=== PATIENT | female | born 1970 ===

== ENCOUNTER 2020-07-08 23:00 | Inpatient (IN) | payer OTHER ==
--- NOTE | 2020-07-08 23:16 | Emergency Department Report ---
HPI - General Time Seen by Provider: 07/08/20 23:09 - HPI HPI: Room 5 Patient is a 49-year-old female presenting with a chief complaint of altered mental status. Per EMS the patient's last known well time was this morning when the patient's neighbor checked on the patient. The patient's daughter asked the neighbor to check on the patient this evening at 22:00 and this is when she was found altered and in her own feces. Per EMS the only word the patient stated during transport was "ouch." In the ED when asked if anything is bothering her the patient states "my head." However, the patient does not follow commands ED Past Medical Hx - Past Medical History Hx Hypertension: Yes - Surgical History Past Surgical History?: No - Family History Family history: no significant - Social History Smoking Status: Unknown if ever smoked Substance Use Type: None ED Review of Systems ROS: Stated complaint: POSS STROKE Other details as noted in HPI Comment: Unobtainable due to pts medical conditions Physical Exam - Physical Exam Physical Exam: GENERAL: The patient is well-developed well-nourished female lying on stretcher not appearing to be in acute distress. [] HEENT: Normocephalic. Atraumatic. Extraocular motions are intact. Patient has moist mucous membranes. NECK: Supple. Trachea midline CHEST/LUNGS: Clear to auscultation. There is no respiratory distress noted. HEART/CARDIOVASCULAR: Regular. There is no tachycardia. There is no gallop rub or murmur. ABDOMEN: Abdomen is soft, nontender. Patient has normal bowel sounds. There is no abdominal distention. SKIN: There is no rash. There is no edema. There is no diaphoresis. NEURO: The patient is awake but slow to respond. Patient occasionally makes eye contact. Patient does not fully cooperate with neurologic exam but is witnessed moving all 4 extremities with prompting. Extraocular muscles intact. Symmetric smile. MUSCULOSKELETAL: There is no evidence of acute injury. ED Course - Consultations Consultation #1: 07/09/20 00:17 Case discussed with [id number] evaluate - Lumbar Puncture Consent Obtained: verbal consent Indication for Procedure: change in mental status Patient Position: Sitting Upright/Leaning F Skin Prep: Povidone-Iodine 1% Local Anesthetic Used: Lidocaine 1% Amount of anesthesia used (mls): 5 Spinal Needle Gauge: 20G Spinal Needle Length: 3.5in Interspace Used: L4-L5 Complications: unable to obtain CSF Patient Tolerated Procedure: no complications ED Medical Decision Making - Lab Data Result diagrams: 07/08/20 23:25 07/08/20 23:25 Laboratory Tests 07/08/20 07/08/20 07/08/20 23:25 23:25 23:25 WBC 17.9 H RBC 5.88 H Hgb 16.4 H Hct 49.8 H MCV 85 MCH 28 MCHC 33 RDW 14.1 Plt Count 535 H Lymph % (Auto) 10.8 L Tompkins % (Auto) 5.5 Eos % (Auto) 0.2 Baso % (Auto) 0.5 Lymph # (Auto) 1.9 Tompkins # (Auto) 1.0 H Eos # (Auto) 0.0 Baso # (Auto) 0.1 Seg Neutrophils % 83.0 H Seg Neutrophils # 14.9 H PT 11.7 L INR 0.88 APTT 25.4 Thrombin Time 15.5 Sodium 138 Potassium 4.2 Chloride 98.0 Carbon Dioxide 25 Anion Gap 19 BUN 17 Creatinine 0.9 Estimated GFR > 60 BUN/Creatinine Ratio 19 Glucose 119 H Calcium 9.0 Total Bilirubin 0.80 AST 15 ALT 18 Alkaline Phosphatase 157 H Ammonia Total Creatine Kinase 132 CK-MB (CK-2) 2.5 CK-MB (CK-2) Rel Index 1.8 Troponin T < 0.010 Total Protein 8.9 H Albumin 4.3 Albumin/Globulin Ratio 0.9 Plasma/Serum Alcohol 07/08/20 07/09/20 23:25 00:12 WBC RBC Hgb Hct MCV MCH MCHC RDW Plt Count Lymph % (Auto) Tompkins % (Auto) Eos % (Auto) Baso % (Auto) Lymph # (Auto) Tompkins # (Auto) Eos # (Auto) Baso # (Auto) Seg Neutrophils % Seg Neutrophils # PT INR APTT Thrombin Time Sodium Potassium Chloride Carbon Dioxide Anion Gap BUN Creatinine Estimated GFR BUN/Creatinine Ratio Glucose Calcium Total Bilirubin AST ALT Alkaline Phosphatase Ammonia 21.0 L Total Creatine Kinase CK-MB (CK-2) CK-MB (CK-2) Rel Index Troponin T Total Protein Albumin Albumin/Globulin Ratio Plasma/Serum Alcohol < 0.01 - EKG Data -: EKG Interpreted by Me EKG shows normal: sinus rhythm Rate: normal - EKG Data When compared to previous EKG there are: previous EKG unavailable Interpretation: normal EKG - Radiology Data Radiology results: report reviewed (CT head, CTA brain, CTA neck), image reviewed (CT head, CTA brain, CTA neck) [facility] [address] [place] [address] Cat Scan Report Signed Patient: KATHERINE ARECHIGA MR#: [id number] : 1970 Acct:[id number] Age/Sex: 49 / F ADM Date: 07/08/20 Loc: ED Attending Dr: Ordering Physician: GREGORY WARREN MD Date of Service: 07/08/20 Procedure(s): CT head/brain wo con Accession Number(s): [id number] cc: GREGORY WARREN MD CT HEAD WITHOUT CONTRAST INDICATION / CLINICAL INFORMATION: Altered mental status, headache. TECHNIQUE: All CT scans at this location are performed using CT dose reduction for ALARA by means of automated exposure control. COMPARISON: None available. FINDINGS: HEMORRHAGE: No evidence of intracranial hemorrhage or extra-axial fluid collection. EXTRA-AXIAL SPACES: Cortical sulci, sylvian fissures and basilar cisterns have an unremarkable appearance. VENTRICULAR SYSTEM: The third and lateral ventricles are of normal size and configuration. CEREBRAL PARENCHYMA: No areas of abnormal brain parenchymal attenuation are identified. There is no indication of recent infarction. MIDLINE SHIFT OR HERNIATION: There is no mass effect. CEREBELLUM / BRAINSTEM: Brainstem and cerebellum have an unremarkable appearance. MIDLINE STRUCTURES:No abnormalities of the pituitary gland or pineal region are identified. INTRACRANIAL VESSELS:No abnormalities are identified on this noncontrast head CT. ORBITS: visualized portions of the orbits have an unremarkable appearance. SOFT TISSUES of HEAD: No significant abnormality. CALVARIUM: Evaluation of bone windows reveals no abnormalities. PARANASAL SINUSES / MASTOID AIR CELLS: Visualized portions of the paranasal sinuses are free from inflammatory mucosal disease. Mastoid air cells are normally pneumatized. ADDITIONAL FINDINGS: None. IMPRESSION: 1. No significant intracranial abnormality is identified on head CT without contrast.. Signer Name: Nate Lilly MD Signed: 07/08/2020 11:25 PM Workstation Name: [id number] Transcribed By: Dictated By: Nate Lilly MD Electronically Authenticated By: Nate Lilly MD Signed Date/Time: 03/2324 DD/ 23 TD/TT: Print Cancel [facility] [address] [place] [address] Cat Scan Report Signed Patient: KATHERINE ARECHIGA MR#: [id number] : 1970 Acct:[id number] Age/Sex: 49 / F ADM Date: 07/08/20 Loc: ED Attending Dr: Ordering Physician: GREGORY WARREN MD Date of Service: 07/09/20 Procedure(s): CT angio head Accession Number(s): [id number] cc: GREGORY WARREN MD CTA head with intravenous contrast CLINICAL HISTORY: Altered mental status TECHNIQUE: 0.625 mm thick contiguous axial scans were obtained from the skull base to the skull vertex during rapid bolus administration of intravenous contrast material. Multiplanar reconstructions were produced in the coronal and sagittal planes. In addition 3 plane MIP instructions were produced and reviewed for this report. The axial source images and reconstructed images were reviewed for this report. CONTRAST DOSE REPORT: Omnipaque 350: 100 ml administered intravenously. According to the patient's angio technologist IV access was lost during the course of the examination and a portion of the intravenous contrast was infiltrated into the surrounding soft tissues at the IV site. All CT scans at this location are performed using CT dose reduction for ALARA by means of automated exposure control. Limitations: Fatty infiltration result in decreased contrast bolus and suboptimal opacification of the intracranial vessels. FINDINGS: Internal carotid arteries:Mayank, cavernous, opthalmic, clinoid and supraclinoid segments of the ICAs have an unremarkable appearance. Middle cerebral arteries:Normal and symmetrical M1 segments of the middle cerebral arteries are demonstrated. No ab normalities are seen on evaluation of the insular or opercular branches. Anterior cerebral arteries: The A1 segment of the right anterior cerebral artery is dominant. The left A1 segment is hypoplastic. No abnormalities are seen along the course of the A2 segments or their visualized pericallosal branches. Vertebral arteries:Bilaterally symmetrical vertebral arteries are demonstrated. Both vertebral arteries contribute to the basilar artery origin. Basilar artery:Basilar artery has an unremarkable appearance. Posterior cerebral arteries: Bilaterally symmetrical posterior cerebral arteries are identified. Dural sinuses: Dural venous sinuses are well demonstrated on this exam. There is no evidence of dural sinus thrombosis. IMPRESSION: 1. No significant abnormality on CTA head. 2. Study is somewhat limited secondary to IV infiltration during contrast injection which resulted in decreased volume of contrast occurred during the examination. Signer Name: Nate Lilly MD Signed: 07/09/2020 2:00 AM Workstation Name: [id number] Transcribed By: Dictated By: Nate Lilly MD Electronically Authenticated By: Nate Lilly MD Signed Date/Time: 07/09/20 020 DD/ 0156 TD/TT: Print Cancel [facility] [address] [place] [address] Cat Scan Report Signed Patient: KATHERINE ARECHIGA MR#: [id number] : 1970 Acct:[id number] Age/Sex: 49 / F ADM Date: 07/08/20 Loc: ED Attending Dr: Ordering Physician: GREGORY WARREN MD Date of Service: 07/09/20 Procedure(s): CT angio neck Accession Number(s): [id number] cc: GREGORY WARREN MD CTA neck without and with intravenous contrast material CLINICAL HISTORY: Altered mental status TECHNIQUE: Following acquisition of a timing bolus 0.625 mm thick contiguous a xial scans were obtained from aortic arch to the skull base during rapid bolus intravenous contrast infusion. In addition to evaluation of axial source images multiplanar reconstructions were produced and reviewed for this report. 3 plane MIP reconstructions were produced and reviewed. Contrast dose report: Omnipaque 350: 100 ml, administered intravenously All CT examinations performed at this facility utilize modulated dose reduction, iterative reconstruction or weight- based dosing, as appropriate, to obtain a radiation dose which is as low as can reasonably be achieved. FINDINGS: Thoracic aorta:No abnormalities are identified along the course of the thoracic aorta..The origins of the great vessels have an unremarkable appearance. Brachiocephalic artery, left common carotid artery origin and left subclavian artery all have an unremarkable appearance. Right carotid artery:No abnormalities are seen along the course of the RCCA, at the right carotid bifurcation or along the cervical portions of the LUIS MIGUEL. Left carotid artery: No abnormalities are noted along the course of the left common carotid artery, at the left carotid bifurcation or along the course of the cervical segments of the LICA. Posterior circulation:The vertebral arteries have an unremarkable appearance. Both vertebral arteries contribute to the basilar artery origin. The basilar artery has an unremarkable appearance. The degree of stenosis, if any, is determined utilizing NASCET like criteria. In this case there is no indication of hemodynamically significant stenosis at the carotid bifurcations or elsewhere. Evaluation of the nonvascular soft tissue structures reveal no abnormality. There is no indication of cervical lymphadenopathy. No abnormalities are seen along the course of the airway. Visualized portions of the parotid glands and the submandibular salivary glands have a normal appearance. Thyroid gland has a normal appearance. Evaluation of the lung apices reveals no evidence of lung nodule or infiltrate. Evaluation of the cervical spine is remarkable for widespread cervical spondylosis. Degenerative changes are superimposed on unfavorably narrowed central spinal canal. Severe central canal stenosis is present at the C5-6 and C6-7 levels. AP diameter of the spinal canal is reduced to about 5 mm at both levels. IMPRESSION: 1. No indication of hemodynamically significant stenosis at the carotid bifurcations or elsewhere. 2. Cervical spondylosis results in severe central canal stenosis at the C5-6 and C6-7 levels. Signer Name: Nate Lilly MD Signed: 07/09/2020 2:04 AM Workstation Name: [id number] Transcribed By: Dictated By: Nate Lilly MD Electronically Authenticated By: Nate Lilly MD Signed Date/Time: 07/09/20203 DD/ 9 TD/TT: Print - Differential Diagnosis Altered mental status, CVA, intoxication, Critical care attestation.: If time is entered above; I have spent that time in minutes in the direct care of this critically ill patient, excluding procedure time. ED Disposition Clinical Impression: Altered mental state, Leukocytosis Disposition: DC-09 OP ADMIT IP TO THIS HOSP Is pt being admited?: Yes Does the pt Need Aspirin: Yes Condition: Fair Time of Disposition: 03:34 (Hospitalist paged (Noah Ayala))
--- NOTE | 2020-07-08 23:30 | Cat Scan Report ---
CT HEAD WITHOUT CONTRAST INDICATION / CLINICAL INFORMATION: Altered mental status, headache. TECHNIQUE: All CT scans at this location are performed using CT dose reduction for ALARA by means of automated e xposure control. COMPARISON: None available. FINDINGS: HEMORRHAGE: No evidence of intracranial hemorrhage or extra-axial fluid collection. EXTRA-AXIAL SPACES: Cortical sulci, sylvian fissures and basilar cisterns have an unremarkable appear ance. VENTRICULAR SYSTEM: The third and lateral ventricles are of normal size and configuration. CEREBRAL PARENCHYMA: No areas of abnormal brain parenchymal attenuation are identified. There is no i ndication of recent infarction. MIDLINE SHIFT OR HERNIATION: There is no mass effect. CEREBELLUM / BRAINSTEM: Brainstem and cerebellum have an unremarkable appearance. MIDLINE STRUCTURES:No abnormalities of the pituitary gland or pineal region are identified. INTRACRANIAL VESSELS:No abnormalities are identified on this noncontrast head CT. ORBITS: visualized portions of the orbits have an unremarkable appearance. SOFT TISSUES of HEAD: No significant abnormality. CALVARIUM: Evaluation of bone windows reveals no abnormalities. PARANASAL SINUSES / MASTOID AIR CELLS: Visualized portions of the paranasal sinuses are free from inf lammatory mucosal disease. Mastoid air cells are normally pneumatized. ADDITIONAL FINDINGS: None. IMPRESSION: 1. No significant intracranial abnormality is identified on head CT without contrast.. Signer Name: Nate Lilly MD Signed: 07/08/2020 11:25 PM Workstation Name: [id number]
[2020-07-09 00:07] LABS: Basophils # (Auto) 0.1 K/mm3 (0.0-0.1); Basophils % (Auto) 0.5 % (0.0-1.8); Eosinophils % (Auto) 0.2 % (0.0-4.3); Hematocrit 49.8 % (30.3-42.9); Hemoglobin 16.4 gm/dl (10.1-14.3); Lymphocytes # (Auto) 1.9 K/mm3 (1.2-5.4); Lymphocytes % (Auto) 10.8 % (13.4-35.0); Mean Corpuscular HGB Conc 33 % (30-34); Mean Corpuscular Volume 85 fl (79-97); Monocytes % (Auto) 5.5 % (0.0-7.3); Platelet Count 535 K/mm3 (140-440); Red Blood Count 5.88 M/mm3 (3.65-5.03); Red Cell Distribution Width 14.1 % (13.2-15.2)
[2020-07-09 00:18] LABS: INR 0.88 (0.87-1.13)
[2020-07-09 00:19] LABS: Partial Thromboplastin Time 25.4 Sec. (24.2-36.6); Thrombin Time 15.5 Sec. (15.1-19.6)
[2020-07-09 00:25] LABS: Alanine Aminotransferase 18 units/L (7-56); Albumin 4.3 g/dL (3.9-5); BUN/Creatinine Ratio 19; Blood Urea Nitrogen 17 mg/dL (7-17); Creatine Kinase MB 2.5 ng/mL (0.0-4.0); Hemolysis Index 0
--- NOTE | 2020-07-09 00:33 | Consultation ---
History of Present Illness History of present illness: [facility] Consult Note # Demographics Consult Type: General Neurology Patient Location: Emergency Room First Name: Rosana Last Name: Christopher Date of : 1970 Age: 49 Gender: Female Time of Initial Page (): 07/09/2020, 00:13 Time of Return Call (): 07/09/2020, 00:13 # HPI History: 49F with HTN presents with altered mental status. LKWT Thursday. Daughter flew in from [place] today and patient was non-verbal, confused, incontinent of stool. Stated head hurts. Not following commands. Moving all four extremities. CT head done, which was unremarkable. Per daughter, had a similar episode 1 year ago, although that was not quite as bad. Has depression and anxiety. BP 167/43. # Scores Time of exam and NIHSS (): 07/09/2020, 00:17 Level of Consciousness 1a: [0] = Alert; keenly responsive LOC Questions 1b: [0] = Answers both questions correctly LOC Commands 1c: [0] = Performs both tasks correctly Best Gaze 2: [0] = Normal Visual 3: [0] = No visual loss Facial Palsy 4: [0] = Normal symmetrical movements Motor Arm Left 5a: [2] = Some effort against gravity Motor Arm Right 5b: [2] = Some effort against gravity Motor Leg Left 6a: [2] = Some effort against gravity Motor Leg Right 6b: [2] = Some effort against gravity Limb Ataxia 7: [0] = Absent Sensory 8: [0] = Normal Best Language 9: [2] = Severe aphasia Dysarthria 10: [1] = [id number] dysarthria Extinction and Inattention 11: [0] = No abnormality NIHSS Total: 11 # Data Other Labs: 17.9K WBCs Time Head CT personally read by me (): 07/09/2020, 00:[address]: no bleed, per radiologist read # Assessment Impression: Altered mental status with aphasia of unclear origin; rule out stroke, meningitis # Plan Thrombolytic/Intervention: NOT IV Thrombolytic or IA Intervention Thrombolytic Exclusion: > 4.5 hours Intraarterial Exclusion: other (see below), 4 days since LKWT Target Blood Pressure: SBP < 220, DBP < 105 Labs: hemoglobin A1c, lipid panel Imaging: (urgency: STAT in ED): MR Angiogram Head without contrast, MR Angiogram Neck with contrast, MRI Brain without contrast Diagnostic Test: echo with bubble study, lumbar puncture: cell count, protein, glucose Therapy/Evaluation: PT/OT evaluation, speech/swallow consultation Medication: ceftraixone 2g q12, vancomycin with goal level 15-20, acyclovir 10 mg/kg q8 with pre- and post-hydration DVT Prophylaxis: SCD Other: telemetry monitoring, I have discussed my recommendations with the referr ing provider # Logistics Telemedicine: Interactive 2 way audio and visual telecommunication technology was utilized during this visit Electronically signed at 07/09/2020 00:32 (Eastern Time) by David Valdes MD Medications and Allergies Allergies Allergy/AdvReac Type Severity Reaction Status Date / Time No Known Allergies Allergy Unverified 07/08/20 23:29 Physical Examination - Vital Signs Vital Signs: Vital Signs Temp Pulse Resp BP Pulse Ox 98.1 F 61 14 169/83 100 07/08/20 23:26 07/08/20 23:26 07/08/20 23:26 07/08/20 23:26 07/08/20 23:26 Results - Laboratory Findings CBC and BMP: 07/08/20 23:25 07/08/20 23:25 Abnormal Lab Findings: Abnormal Labs 07/08/20 07/08/20 07/08/20 23:25 23:25 23:25 WBC 17.9 H RBC 5.88 H Hgb 16.4 H Hct 49.8 H Plt Count 535 H Lymph % (Auto) 10.8 L Hanson # (Auto) 1.0 H Seg Neutrophils % 83.0 H Seg Neutrophils # 14.9 H PT 11.7 L Glucose 119 H Alkaline Phosphatase 157 H Ammonia Total Protein 8.9 H 07/08/20 23:25 WBC RBC Hgb Hct Plt Count Lymph % (Auto) Hanson # (Auto) Seg Neutrophils % Seg Neutrophils # PT Glucose Alkaline Phosphatase Ammonia 21.0 L Total Protein
[2020-07-09] MEDS ORDERED: ONDANSETRON 4 MG/2 ML INJ ONE (00:50)
[2020-07-09] MEDS ORDERED: ONDANSETRON 4 MG/2 ML INJ IV ONE (00:51)
[2020-07-09] MEDS ORDERED: ETOMIDATE 20 MG/10 ML INJ IV ONE (00:59)
--- NOTE | 2020-07-09 01:43 | History and Physical Report ---
History of Present Illness Date of examination: 07/09/20 Date of admission: 07/09/2020 Chief complaint: Altered mental status History of present illness: 49-year-old female with significant past medical history of hypertension brought into the emergency room today with complaint of altered mental status. Last well-known time was about 4 days ago. Patient's daughter had asked the neighbor to check on patient this evening at about 2200 when she was found altered and in her own feces. Patient unable to give any good history. Most of the history was gotten from the ER staff. Patient was also said to have complained about a headache upon arrival. Work-up in the emergency room today reveals a leukocytosis of about 18,000. CT scan of the head and CT angiogram were unremarkable. Lumbar puncture was attempted by the ER physician without success. Neurologist on-call was also consulted. Recommendation was to start patient on empiric antibiotics for possible meningitis. Past History Past Medical History: other (Depression, anxiety) Past Surgical History: No surgical history Social history: Lives alone Family history: no significant family history Medications and Allergies Allergies Allergy/AdvReac Type Severity Reaction Status Date / Time No Known Allergies Allergy Unverified 07/08/20 23:29 Review of Systems ROS unobtainable: due to mental status Exam - Constitutional Vitals: Temp Pulse Resp BP Pulse Ox 98.1 F 62 24 167/43 100 07/08/20 23:26 07/09/20 00:00 07/09/20 00:00 07/09/20 01:26 07/09/20 01:26 General appearance: Present: no acute distress, well-nourished, obese - EENT Eyes: Present: PERRL, EOM intact. Absent: scleral icterus ENT: clear oral mucosa, dentition normal - Neck Neck: Present: supple, normal ROM - Respiratory Respiratory effort: normal Respiratory: bilateral: CTA - Cardiovascular Rhythm: regular Heart Sounds: Present: S1 & S2. Absent: gallop, systolic murmur, diastolic murmur, rub, click - Extremities Extremities: no ischemia, pulses intact, pulses symmetrical, No edema, normal temperature, normal color, Full ROM Peripheral Pulses: within normal limits - Abdominal General gastrointestinal: Present: soft, non-tender, non-distended, normal bowel sounds. Absent: mass - Integumentary Integumentary: Present: clear, warm, dry. Absent: rash - Musculoskeletal Musculoskeletal: strength equal bilaterally - Psychiatric Psychiatric: cooperative - Neurologic Neurologic: CNII-XII intact, no focal deficits, moves all extremities HEART Score - HEART Score Troponin: Troponin T < 0.010 ng/mL (0.00-0.029) 07/08/20 23:25 Results - Labs CBC & Chem 7: 07/08/20 23:25 07/08/20 23:25 Labs: Abnormal lab results 07/08/20 07/08/20 07/08/20 Range/Units 23:25 23:25 23:25 WBC 17.9 H (4.5-11.0) K/mm3 RBC 5.88 H (3.65-5.03) M/mm3 Hgb 16.4 H (10.1-14.3) gm/dl Hct 49.8 H (30.3-42.9) % Plt Count 535 H (140-440) K/mm3 Lymph % (Auto) 10.8 L (13.4-35.0) % Bent # (Auto) 1.0 H (0.0-0.8) K/mm3 Seg Neutrophils % 83.0 H (40.0-70.0) % Seg Neutrophils # 14.9 H (1.8-7.7) K/mm3 PT 11.7 L (12.2-14.9) Sec. Glucose 119 H (65-100) mg/dL Alkaline Phosphatase 157 H (35-129) units/L Ammonia (25-60) umol/L Total Protein 8.9 H (6.3-8.2) g/dL 07/08/20 Range/Units 23:25 WBC (4.5-11.0) K/mm3 RBC (3.65-5.03) M/mm3 Hgb (10.1-14.3) gm/dl Hct (30.3-42.9) % Plt Count (140-440) K/mm3 Lymph % (Auto) (13.4-35.0) % Bent # (Auto) (0.0-0.8) K/mm3 Seg Neutrophils % (40.0-70.0) % Seg Neutrophils # (1.8-7.7) K/mm3 PT (12.2-14.9) Sec. Glucose (65-100) mg/dL Alkaline Phosphatase (35-129) units/L Ammonia 21.0 L (25-60) umol/L Total Protein (6.3-8.2) g/dL Assessment and Plan - Patient Problems (1) Altered mental state Current Visit: Yes Status: Acute Plan to address problem: Etiology is unclear. Will monitor mental status. Patient is being started on empiric IV antibiotics for possible meningitis. We will place consult to infectious disease for evaluation and recommendation. Lumbar puncture was attempted in the emergency room without success. We willconsult interventional radiology for evaluation. (2) Morbid obesity with BMI of 45.0-49.9, adult Current Visit: Yes Status: Acute Plan to address problem: We will place dietary consult. (3) Hypertension Current Visit: Yes Status: Acute Plan to address problem: We will place on routine home medications and monitor vital signs closely. (4) Leukocytosis Current Visit: Yes Status: Acute Plan to address problem: Possibly secondary to underlying infection. Patient placed on empiric IV antibiotics. We will monitor CBC. (5) DVT prophylaxis Current Visit: Yes Status: Acute Plan to address problem: Patient placed on sequential compression device. (6) Full code status Current Visit: Yes Status: Acute Plan to address problem: Patient is full code.
--- NOTE | 2020-07-09 02:04 | Cat Scan Report ---
CTA head with intravenous contrast CLINICAL HISTORY: Altered mental status TECHNIQUE: 0.625 mm thick contiguous axial scans were obtained from the skull base to the skull vertex during r apid bolus administration of intravenous contrast material. Multiplanar reconstructions were produced in the coronal and sagittal planes. In addition 3 plane MIP instructions were produced and reviewed for this report. The axial source images and reconstructed images were reviewed for this report. CONTRAST DOSE REPORT: Omnipaque 350: 100 ml administered intravenously. According to the patient's clinical lab technologist IV acces s was lost during the course of the examination and a portion of the intravenous contrast was infiltr ated into the surrounding soft tissues at the IV site. All CT scans at this location are performed using CT dose reduction for ALARA by means of automated e xposure control. Limitations: Fatty infiltration result in decreased contrast bolus and suboptimal opacification of th e intracranial vessels. FINDINGS: Internal carotid arteries:Mayank, cavernous, opthalmic, clinoid and supraclinoid segments of the ICAs have an unremarkable appearance. Middle cerebral arteries:Normal and symmetrical M1 segments of the middle cerebral arteries are demon strated. No abnormalities are seen on evaluation of the insular or opercular branches. Anterior cerebral arteries: The A1 segment of the right anterior cerebral artery is dominant. The lef t A1 segment is hypoplastic. No abnormalities are seen along the course of the A2 segments or their v isualized pericallosal branches. Vertebral arteries:Bilaterally symmetrical vertebral arteries are demonstrated. Both vertebral arteri es contribute to the basilar artery origin. Basilar artery:Basilar artery has an unremarkable appearance. Posterior cerebral arteries: Bilaterally symmetrical posterior cerebral arteries are identified. Dural sinuses: Dural venous sinuses are well demonstrated on this exam. There is no evidence of dural sinus thrombosis. IMPRESSION: 1. No significant abnormality on CTA head. 2. Study is somewhat limited secondary to IV infiltration during contrast injection which resulted in decreased volume of contrast occurred during the examination. Signer Name: Nate Lilly MD Signed: 07/09/2020 2:00 AM Workstation Name: [id number]
--- NOTE | 2020-07-09 02:08 | Cat Scan Report ---
CTA neck without and with intravenous contrast material CLINICAL HISTORY: Altered mental status TECHNIQUE: Following acquisition of a timing bolus 0.625 mm thick contiguous axial scans were obtained from aort ic arch to the skull base during rapid bolus intravenous contrast infusion. In addition to evaluation of axial source images multiplanar reconstructions were produced and reviewed for this report. 3 john ne MIP reconstructions were produced and reviewed. Contrast dose report: Omnipaque 350: 100 ml, administered intravenously All CT examinations performed at this facility utilize modulated dose reduction, iterative reconstruc tion or weight-based dosing, as appropriate, to obtain a radiation dose which is as low as can reason ably be achieved. FINDINGS: Thoracic aorta:No abnormalities are identified along the course of the thoracic aorta..The origins of the great vessels have an unremarkable appearance. Brachiocephalic artery, left common carotid arter y origin and left subclavian artery all have an unremarkable appearance. Right carotid artery:No abnormalities are seen along the course of the RCCA, at the right carotid bif urcation or along the cervical portions of the LUIS MIGUEL. Left carotid artery: No abnormalities are noted along the course of the left common carotid artery, a t the left carotid bifurcation or along the course of the cervical segments of the LICA. Posterior circulation:The vertebral arteries have an unremarkable appearance. Both vertebral arteries contribute to the basilar artery origin. The basilar artery has an unremarkable appearance. The degree of stenosis, if any, is determined utilizing NASCET like criteria. In this case there is no indication of hemodynamically significant stenosis at the carotid bifurcations or elsewhere. Evaluation of the nonvascular soft tissue structures reveal no abnormality. There is no indication of cervical lymphadenopathy. No abnormalities are seen along the course of the airway. Visualized porti ons of the parotid glands and the submandibular salivary glands have a normal appearance. Thyroid gla nd has a normal appearance. Evaluation of the lung apices reveals no evidence of lung nodule or infil trate. Evaluation of the cervical spine is remarkable for widespread cervical spondylosis. Degenerative barbour ges are superimposed on unfavorably narrowed central spinal canal. Severe central canal stenosis is p resent at the C5-6 and C6-7 levels. AP diameter of the spinal canal is reduced to about 5 mm at both levels. IMPRESSION: 1. No indication of hemodynamically significant stenosis at the carotid bifurcations or elsewhere. 2. Cervical spondylosis results in severe central canal stenosis at the C5-6 and C6-7 levels. Signer Name: Nate Lilly MD Signed: 07/09/2020 2:04 AM Workstation Name: [id number]
[2020-07-09] MEDS ORDERED: ASPIRIN 325 MG TAB PO ONE (03:34)
[2020-07-09] MEDS ORDERED: cefTRIAXone/NS 2 GM/100 ML 2 GM/100 ML BAG IV ONE (03:35)
[2020-07-09] MEDS ORDERED: VANCOMYCIN/NS 1 GM/250 ML 1 GM/250 ML BAG IV ONE (03:38)
[2020-07-09] MEDS ORDERED: ACETAMINOPHEN 325 MG TAB PO PRN (04:19)
[2020-07-09] MEDS ORDERED: MAGNESIUM HYDROXIDE (MOM) ORAL LIQD UDC PO PRN (04:19)
[2020-07-09] MEDS ORDERED: VANCOMYCIN PHARMACY TO DOSE IV SCH (05:00)
[2020-07-09] MEDS ORDERED: cefTRIAXone/NS 2 GM/100 ML 2 GM/100 ML BAG IV SCH (05:00)
[2020-07-09] MEDS: SODIUM CHLORIDE 0.9% 1000 ML 1,000 ML IV SCH ×2 (05:25→18:41)
[2020-07-09] MEDS ORDERED: VANCOMYCIN 2,000 MG in SODIUM CHLORIDE 0.9% 500 ML 500 ML IV SCH (06:00)
[2020-07-09] MEDS: hydrALAZINE 20 MG/1 ML INJ IV PRN (06:37)
[2020-07-09] MEDS: SODIUM CHLORIDE 0.9% IV SCH ×2 (06:39→13:35)
[2020-07-09] MEDS: ACYCLOVIR IV SCH ×2 (06:39→13:35)
[2020-07-09] MEDS: ENALAPRILAT 2.5 MG/2 ML INJ IV SCH ×3 (09:20→21:16)
--- NOTE | 2020-07-09 09:29 | Electrocardiograph Report ---
[facility] Test Date: 2020-07-08 Test Time: 23:44:11 Pat Name: KATHERINE ARECHIGA Department: Room: A469 1 Gender: F Superintendent Terminal: GIAN : 1970 Requested By: GREGORY WARREN Order Number: [id number] Reading MD: Rainer Hsu Measurements Intervals [place] Rate: 64 P: 6 MO: 156 QRS: 2 QRSD: 81 T: 17 QT: 425 QTc: 439 Interpretive Statements Sinus rhythm No previous ECG available for comparison Electronically Signed On 07-09-2020 6:29:37 PDT by Rainer Hsu
--- NOTE | 2020-07-09 10:46 | Procedure Note ---
Date of procedure: 07/09/20 Pre-op diagnosis: altered mental status Post-op diagnosis: same Procedure: lumbar functure under flouro Findings: mildly elevated pressures Anesthesia: local Surgeon: DONTA HOBBS Estimated blood loss: none Pathology: list (4 csf tubes) Specimen disposition: to lab Condition: stable Disposition: floor
--- NOTE | 2020-07-09 11:06 | Event Note ---
Date: 07/09/20 Patient seen and examined this morning she is more awake. She is unsure why she came to the hospital. She knows where she is. Upper extremities is intact no evidence of infiltration. No warmth or tenderness at the site suspected. She is for lumbar puncture this morning which was done successfully at the time of this note. Will follow results. She moves all limbs and extremities.
--- NOTE | 2020-07-09 11:18 | Fluoroscopy Report ---
LUMBAR PUNCTURE INDICATION : Altered mental status PROCEDURE: The risks (including but not limited to bleeding, infection, and spinal headache) and toby efits were explained to the patient and informed consent was obtained. A time out procedure was perf ormed. The procedure site was prepped and draped in the usual sterile fashion and lidocaine was used for local anesthesia. Under fluoroscopic guidance, a 22-gauge spinal needle was advanced into the L2-3 interlaminar space. The opening pressure was 180 mm H2O which was calculated by adding the length of the needle (9 cm) to the height of the CSF column. 4 separate collection tubes were used to obtain 1.5 cc of CSF each Eber ples were sent to the lab per the ordering physician specifications for further evaluation. The patient tolerated the procedure well with no complications. IMPRESSION: Successful lumbar puncture as outlined above. Opening pressure was 180 mm H20. Fluoroscopic time: 0.7 minutes Number of fluoroscopic images: 0 Signer Name: Scotty Lombardo Jr, MD Signed: 07/09/2020 11:14 AM Workstation Name: [id number]
[2020-07-09 12:54] LABS: White Blood Cell,CSF 0 /mm3 (1-10)
[2020-07-09 12:56] LABS: Appearance,CSF Hazy; Red Blood Cell,CSF 715 /mm3 (0-0)
[2020-07-09] MEDS ORDERED: ACYCLOVIR 1,000 MG in SODIUM CHLORIDE 0.9% 100 ML IV SCH (14:00)
[2020-07-09] MEDS: MORPHINE 2 MG/1 ML INJ IV PRN ×2 (14:04→18:40)
[2020-07-09] MEDS: ONDANSETRON 4 MG/2 ML INJ IV PRN (14:04)
--- NOTE | 2020-07-09 14:24 | Consultation ---
History of Present Illness - Reason for Consult Consult date: 07/09/20 Altered mental status, leukocytosis Requesting physician: ELLIS CANTU - History of Present Illness 49 years old female with history of morbid obesity, hypertension, admitted on secondary to 4-day history of altered mental status consistent with confusion. Patient was found by her neighbor altered on her own feces. Patient is not the best historian unable to provide a good history. She does report some headaches. On arrival, temperature 98.1, HR 61, 70 O2 sat 100, BP 169/83, initial WBC 17.9. Hemoglobin 16.4. Platelets 535. Creatinine 0.9. LFTs normal. CT of the head unremarkable. Review of Systems: positive in bold print limited mental status Past History Past Medical History: other (Depression, anxiety) Past Surgical History: No surgical history Social history: Lives alone Family history: no significant family history Medications and Allergies Allergies Allergy/AdvReac Type Severity Reaction Status Date / Time No Known Allergies Allergy Unverified 07/08/20 23:29 Home Medications Medication Instructions Recorded Confirmed Last Taken Type Hydroxyzine HCl [hydrOXYzine] 50 mg PO Q6HR PRN 07/09/20 07/09/20 Unknown History Ibuprofen [Motrin] 800 mg PO Q8HR PRN 07/09/20 07/09/20 Unknown History Meloxicam [Mobic] 15 mg PO DAILY 07/09/20 07/09/20 Unknown History Nabumetone 750 mg PO BID 07/09/20 07/09/20 Unknown History clonazePAM [clonazePAM Rapdis] 0.5 mg PO BID 07/09/20 07/09/20 Unknown History Active Meds: Active Medications Acetaminophen (Acetaminophen 325 Mg Tab) 650 mg PO Q4H PRN PRN Reason: Pain MILD(1-3)/Fever >100.5/PIKE Enalaprilat (Enalaprilat 2.5 Mg/2 Ml Inj) 1.25 mg IV Q6H LETTY Stop: 07/10/20 02:31 Last Admin: 07/09/20 13:53 Dose: 1.25 mg Documented by: Hydralazine HCl (Hydralazine 20 Mg/1 Ml Inj) 10 mg IV Q4H PRN PRN Reason: Hypertension Last Admin: 07/09/20 06:37 Dose: 10 mg Documented by: Sodium Chloride (Nacl 0.9% 1000 Ml) 1,000 mls @ 125 mls/hr IV DIRECT LETTY Last Admin: 07/09/20 05:25 Dose: 125 mls/hr Documented by: Ceftriaxone Sodium (Rocephin/Ns 2 Gm/100 Ml) 2 gm in 100 mls @ 200 mls/hr IV Q12H [facility]; Protocol Last Admin: 07/09/20 05:25 Dose: 200 mls/hr Documented by: Vancomycin HCl 2,000 mg/ (Sodium Chloride) 540 mls @ 250 mls/hr IV Q12H [facility] Last Admin: 07/09/20 09:21 Dose: Not Given Documented by: Acyclovir 1,000 mg/ Sodium (Chloride) 120 mls @ 100 mls/hr IV Q8HR [facility]; Protocol Magnesium Hydroxide (Magnesium Hydroxide (Mom) Oral Liqd Udc) 30 ml PO Q4H PRN PRN Reason: Constipation Morphine Sulfate (Morphine 2 Mg/1 Ml Inj) 2 mg IV Q4H PRN PRN Reason: Pain, Moderate (4-6) Last Admin: 07/09/20 14:04 Dose: 2 mg Documented by: Ondansetron HCl (Ondansetron 4 Mg/2 Ml Inj) 4 mg IV Q8H PRN PRN Reason: Nausea And Vomiting Last Admin: 07/09/20 14:04 Dose: 4 mg Documented by: Sodium Chloride (Sodium Chloride 0.9% 10 Ml Flush Syringe) 10 ml IV BID [facility] Last Admin: 07/09/20 09:30 Dose: Not Given Documented by: Sodium Chloride (Sodium Chloride 0.9% 10 Ml Flush Syringe) 10 ml IV PRN PRN PRN Reason: LINE FLUSH Physical Examination - Physical Exam Narrative exam: General appearance: Alert in NAD Eyes: anicteric sclerae, moist conjunctivae; no lid-lag; PERRLA HENT: Normocephalic, Atraumatic; normal external ears, nares open, oropharynx clear Neck: supple, tracheal midline, no JVD Lungs: Diminished breath sounds bilaterally CV: RRR no murmur Abdomen: Soft, tender suprapubic and bilateral lower quadrants + guarding Extremities: no edema, no cyanosis Skin: No rash. Psych: no agitated Neuro: Alert oriented confused - Constitutional Vitals: Vital Signs Temp Pulse Resp BP Pulse Ox 98.5 F 90 24 150/78 99 07/09/20 08:08 07/09/20 13:53 07/09/20 07:40 07/09/20 13:53 07/09/20 12:37 Temperature -Last 24 Hours Temperature 98.5 F Temperature 98.2 F Temperature 98.1 F Results - Labs CBC & Chem 7: 07/08/20 23:25 07/08/20 23:25 Labs: Abnormal lab results 07/08/20 07/08/20 07/08/20 Range/Units 23:19 23:25 23:25 WBC 17.9 H (4.5-11.0) K/mm3 RBC 5.88 H (3.65-5.03) M/mm3 Hgb 16.4 H (10.1-14.3) gm/dl Hct 49.8 H (30.3-42.9) % Plt Count 535 H (140-440) K/mm3 Lymph % (Auto) 10.8 L (13.4-35.0) % [place] # (Auto) 1.0 H (0.0-0.8) K/mm3 Seg Neutrophils % 83.0 H (40.0-70.0) % Seg Neutrophils # 14.9 H (1.8-7.7) K/mm3 PT 11.7 L (12.2-14.9) Sec. Glucose (65-100) mg/dL POC Glucose 125 H (70-105) mg/dL Alkaline Phosphatase (35-129) units/L Ammonia (25-60) umol/L Total Protein (6.3-8.2) g/dL 07/08/20 07/08/20 Range/Units 23:25 23:25 WBC (4.5-11.0) K/mm3 RBC (3.65-5.03) M/mm3 Hgb (10.1-14.3) gm/dl Hct (30.3-42.9) % Plt Count (140-440) K/mm3 Lymph % (Auto) (13.4-35.0) % [place] # (Auto) (0.0-0.8) K/mm3 Seg Neutrophils % (40.0-70.0) % Seg Neutrophils # (1.8-7.7) K/mm3 PT (12.2-14.9) Sec. Glucose 119 H (65-100) mg/dL POC Glucose (70-105) mg/dL Alkaline Phosphatase 157 H (35-129) units/L Ammonia 21.0 L (25-60) umol/L Total Protein 8.9 H (6.3-8.2) g/dL Assessment and Plan Cultures: None Assessment: 49 years old female with history of morbid obesity, hypertension, admitted on secondary to 4-day history of altered mental status consistent with confusion: #Acute leukocytosis: Of unclear etiology. CSF preliminary report not consistent with meningitis. ? Intra-abdominal source #Abdominal tenderness on exam: Patient noted with abdominal tenderness on exam. LFTs normal. #Morbid obesity #Acute encephalopathy: Unclear etiology. CT of the head unremarkable Recommendations: -Stop ceftriaxone, vancomycin and acyclovir -Start Zosyn IV -Check urinalysis, consider CT of abdomen/pelvis -CRP Will follow. Nery Swartz MD Infectious Diseases [facility] ([facility]) M [phone] O [phone]
[2020-07-09 14:46] LABS: Amphetamine Screen,Urine Negative; Benzodiazepines Screen,Urine Negative; Cocaine Screen,Urine Negative; Methadone Screen,Urine Negative; Opiate Screen,Urine Negative
[2020-07-09 14:55] LABS: Bilirubin,Urine NEG (Negative); Blood,Urine SM (Negative); Color,Urine Amber (Yellow); Mucus,Urine FEW /HPF; WBC,Urine < 1.0 /HPF (0.0-6.0)
[2020-07-09 14:59] LABS: Cannabinoid Screen,Urine PRESUMPTIVE POSITIVE
[2020-07-09 15:35] LABS: Total Cells Counted 100 /mm3
[2020-07-09 16:03] LABS: INR 0.92 (0.87-1.13)
[2020-07-09 16:04] LABS: Partial Thromboplastin Time 27.1 Sec. (24.2-36.6)
[2020-07-09 16:57] LABS: Basophils CSF 0 %
--- NOTE | 2020-07-09 17:37 | Event Note ---
Date: 07/09/20 IR does not perform LPs at this facility. Please coordinate with diagnostic radiology. Thank you.
[2020-07-09 20:24] LABS: Glucose,CSF 68 mg/dL
[2020-07-10] MEDS: ONDANSETRON 4 MG/2 ML INJ IV PRN ×2 (02:06→14:23)
[2020-07-10] MEDS: ENALAPRILAT 2.5 MG/2 ML INJ IV SCH (02:07)
[2020-07-10] MEDS: SODIUM CHLORIDE 0.9% 1000 ML 1,000 ML IV SCH (02:09)
[2020-07-10] MEDS ORDERED: PIPERACIL/TAZOBACTA 4.5/NS 100 4.5 GM/100 ML VIAL IV SCH (08:00)
--- NOTE | 2020-07-10 08:42 | Cat Scan Report ---
CT ABDOMEN AND PELVIS WITHOUT CONTRAST INDICATION / CLINICAL INFORMATION: abdominal pain. TECHNIQUE: Axial CT images were obtained through the abdomen and pelvis without IV contrast. All CT scans at this location are performed using CT dose reduction for ALARA by means of automated exposure control. COMPARISON: None available. FINDINGS: LOWER CHEST: No significant abnormality LIVER: Mild hepatomegaly and hepatic steatosis. GALLBLADDER/BILIARY TREE: No significant abnormality PANCREAS: No significant abnormality SPLEEN: No significant abnormality ADRENALS: No significant abnormality KIDNEYS / URETER: No significant abnormality URINARY BLADDER: No significant abnormality REPRODUCTIVE ORGANS: IUD is seen in the uterus. No suspicious adnexal mass. STOMACH / SMALL BOWEL: Stomach and small bowel are normal in caliber. No evidence of bowel inflammati on. COLON: The colon is unremarkable. The appendix is not definitely seen. LYMPH NODES: No significant adenopathy. VASCULATURE: No significant abnormality. OTHER: No free air, free fluid, or focal fluid collection is identified. SKELETAL SYSTEM: Degenerative changes of the spine. No acute osseous findings. IMPRESSION: No acute abnormality of the abdomen or pelvis. Signer Name: Pipe Kendall MD Signed: 07/10/2020 8:37 AM Workstation Name: [id number]
--- NOTE | 2020-07-10 08:50 | XRay Report ---
CHEST 2 VIEWS INDICATION / CLINICAL INFORMATION: eval for pneumonia. COMPARISON: CT abdomen pelvis 07/09/2020 FINDINGS: SUPPORT DEVICES: None. HEART / MEDIASTINUM: No significant abnormality. LUNGS / PLEURA: Hazy opacification at the periphery is likely secondary to overlying soft tissue. No convincing evidence of acute pulmonary or pleural abnormality. No pneumothorax. ADDITIONAL FINDINGS: No significant additional findings. IMPRESSION: 1. No convincing evidence of acute pulmonary parenchymal or pleural disease. Signer Name: Jairon Lay MD Signed: 07/10/2020 8:45 AM Workstation Name: [id number]
--- NOTE | 2020-07-10 10:01 | Progress Note ---
Assessment and Plan Cultures: CSF culture pending Assessment: 49 years old female with history of morbid obesity, hypertension, a dmitted on secondary to 4-day history of altered mental status consistent with confusion: #Acute leukocytosis: Of unclear etiology. Procalcitonin is low. CSF preliminary report not consistent with meningitis. Chest x-ray unremarkable. Abdominal CT unremarkable. Urinalysis negative. CRP 7 #Abdominal tenderness on exam: Abdominal CT unremarkable. LFTs normal. #Morbid obesity #Acute encephalopathy: Resolved. Unclear etiology. CT of the head unremarkable Recommendations: -Follow-up blood cultures -Stop Zosyn, procalcitonin is low, chest x-ray is negative, abdominal CT negative, urinalysis negative -Monitor off antibiotics Will follow. Nery Swartz MD Infectious Diseases [facility] ([facility]) M [phone] O [phone] Subjective Date of service: 07/10/20 Principal diagnosis: SIRS Interval history: Patient feels better, no fever, no abdominal pain, headache is better. Objective - Exam Narrative Exam: General appearance: Alert in NAD Eyes: anicteric sclerae, moist conjunctivae; no lid-lag; PERRLA HENT: Normocephalic, Atraumatic; normal external ears, nares open, oropharynx clear Neck: supple, tracheal midline, no JVD Lungs: Diminished breath sounds bilaterally CV: RRR no murmur Abdomen: Soft, tender suprapubic and bilateral lower quadrants + guarding Extremities: no edema, no cyanosis Skin: No rash. Psych: no agitated Neuro: Alert oriented confused - Constitutional Vitals: Vital Signs Temp Pulse Resp BP Pulse Ox 98.8 F 84 98 H 166/90 95 07/10/20 07:21 07/10/20 07:34 07/10/20 07:21 07/10/20 07:21 07/10/20 07:34 Temperature -Last 24 Hours Temperature 98.8 F Temperature 97.9 F Temperature 98.3 F Temperature 98.4 F Temperature 98.3 F Temperature 99.1 F - Labs CBC & Chem 7: 07/09/20 15:22 07/08/20 23:25 Labs: Abnormal lab results 07/08/20 07/09/20 07/09/20 Range/Units 14:04 15:22 15:22 Plt Count 532 H (140-440) K/mm3 C-Reactive Protein 7.50 H (0.00-1.30) mg/dL Ur Specific [place] 1.060 H (1.003-1.030)
[2020-07-10] MEDS: MORPHINE 2 MG/1 ML INJ IV PRN (10:38)
--- NOTE | 2020-07-10 12:07 | Progress Note ---
Assessment and Plan Assessment and plan: 49-year-old female with significant past medical history of hypertension brought into the emergency room today with complaint of altered mental status. Last well-known time was about 4 days ago. Patient's daughter had asked the neighbor to check on patient this evening at about 2200 when she was found altered and in her own feces. Patient unable to give any good history. Most of the history was gotten from the ER staff. Patient was also said to have complained about a headache upon arrival. Work-up in the emergency room today reveals a leukocytosis of about 18,000. CT scan of the head and CT angiogram were unremarkable. Lumbar puncture was attempted by the ER physician without success. Neurologist on-call was also consulted. Recommendation was to start patient on empiric antibiotics for possible meningitis. 07/10. Patient had an LP performed that showed no meningitis. ID on board. Patient had a chest x-ray and CT abdomen and pelvis performed yesterday and those findings are essentially negative for any acute process. Her white count yesterday was elevated. Plan to repeat white count today. Blood culture also ordered today. Patient remains on Zosyn. She is alert and oriented x3 today. Denies any abdominal pain, nausea or vomiting. Problems #Acute metabolic encephalopathy -resolved CT head negative for any acute pathology Patient started on IV antibiotic for possible meningitis. Patient had an LP performed that showed negative meningeal disease/infection. Chest x-ray also ordered-no acute infection CT abdomen and pelvis also negative Plan now will be to repeat CBC and blood culture. Continue IV antibiotics #Hypertension Monitor blood pressure #Morbid obesity Weight loss, diet and exercise advised #DVT prophylaxis-SCDs #Full code #Disposition-Home when stable. Likely home tomorrow pending CBC and blood culture History Interval history: Patient seen and examined at bedside this morning She is alert oriented x3 Chest x-ray negative for pneumonia. CT abdomen and pelvis negative for any acute abdominal infection/process Remains on IV antibiotics Patient has no complaints today Hospitalist Physical - Physical exam Narrative exam: VITAL SIGNS: Reviewed. GENERAL: Awake HEAD: No signs of head trauma. EYES: Pupils are equal. Extraocular motions intact. MOUTH: Oropharynx is normal. NECK: No adenopathy, no JVD. CHEST: Chest with diminished breath sounds bilaterally. No wheezes, rales, or rhonchi. CARDIAC: normal S1 and S2, without murmurs, gallops, or rubs. ABDOMEN: Soft, non tender and non distended. No rebound or guarding, and no masses palpated. Bowel Sounds normal. MUSCULOSKELETAL: No edema NEUROLOGIC EXAM: Alert and oriented x3. No focal neurologic deficits SKIN: No obvious lesions - Constitutional Vitals: Temp Pulse Resp BP Pulse Ox 98.8 F 84 98 H 166/90 95 07/10/20 07:21 07/10/20 07:34 07/10/20 07:21 07/10/20 07:21 07/10/20 07:34 HEART Score - HEART Score Troponin: Troponin T < 0.010 ng/mL (0.00-0.029) 07/08/20 23:25 Results - Labs CBC & Chem 7: 07/09/20 15:22 07/08/20 23:25 Labs: Laboratory Last Values WBC 17.9 K/mm3 (4.5-11.0) H 07/08/20 23:25 RBC 5.88 M/mm3 (3.65-5.03) H 07/08/20 23:25 Hgb 16.4 gm/dl (10.1-14.3) H 07/08/20 23:25 Hct 49.8 % (30.3-42.9) H 07/08/20 23:25 MCV 85 fl (79-97) 07/08/20 23:25 MCH 28 pg (28-32) 07/08/20 23:25 MCHC 33 % (30-34) 07/08/20 23:25 RDW 14.1 % (13.2-15.2) 07/08/20 23:25 Plt Count 532 K/mm3 (140-440) H 07/09/20 15:22 Lymph % (Auto) 10.8 % (13.4-35.0) L 07/08/20 23:25 [place] % (Auto) 5.5 % (0.0-7.3) 07/08/20 23:25 Eos % (Auto) 0.2 % (0.0-4.3) 07/08/20 23:25 Baso % (Auto) 0.5 % (0.0-1.8) 07/08/20 23:25 Lymph # (Auto) 1.9 K/mm3 (1.2-5.4) 07/08/20 23:25 [place] # (Auto) 1.0 K/mm3 (0.0-0.8) H 07/08/20 23:25 Eos # (Auto) 0.0 K/mm3 (0.0-0.4) 07/08/20 23:25 Baso # (Auto) 0.1 K/mm3 (0.0-0.1) 07/08/20 23:25 Seg Neutrophils % 83.0 % (40.0-70.0) H 07/08/20 23:25 Seg Neutrophils # 14.9 K/mm3 (1.8-7.7) H 07/08/20 23:25 PT 12.2 Sec. (12.2-14.9) 07/09/20 15:22 INR 0.92 (0.87-1.13) 07/09/20 15:22 APTT 27.1 Sec. (24.2-36.6) 07/09/20 15:22 Thrombin Time 15.5 Sec. (15.1-19.6) 07/08/20 23:25 Sodium 138 mmol/L (137-145) 07/08/20 23:25 Potassium 4.2 mmol/L (3.6-5.0) 07/08/20 23:25 Chloride 98.0 mmol/L (98-107) 07/08/20 23:25 Carbon Dioxide 25 mmol/L (22-30) 07/08/20 23:25 Anion Gap 19 mmol/L 07/08/20 23:25 BUN 17 mg/dL (7-17) 07/08/20 23:25 Creatinine 0.9 mg/dL (0.6-1.2) 07/08/20 23:25 Estimated GFR > 60 ml/min 07/08/20 23:25 BUN/Creatinine Ratio 19 % 07/08/20 23:25 Glucose 119 mg/dL (65-100) H 07/08/20 23:25 POC Glucose 97 mg/dL (70-105) 07/10/20 02:01 Calcium 9.0 mg/dL (8.4-10.2) 07/08/20 23:25 Total Bilirubin 0.80 mg/dL (0.1-1.2) 07/08/20 23:25 AST 15 units/L (5-40) 07/08/20 23:25 ALT 18 units/L (7-56) 07/08/20 23:25 Alkaline Phosphatase 157 units/L (35-129) H 07/08/20 23:25 Ammonia 21.0 umol/L (25-60) L 07/08/20 23:25 Total Creatine Kinase 132 units/L (30-135) 07/08/20 23:25 CK-MB (CK-2) 2.5 ng/mL (0.0-4.0) 07/08/20 23:25 CK-MB (CK-2) Rel Index 1.8 (0-4) 07/08/20 23:25 Troponin T < 0.010 ng/mL (0.00-0.029) 07/08/20 23:25 C-Reactive Protein 7.50 mg/dL (0.00-1.30) H 07/09/20 15:22 Total Protein 8.9 g/dL (6.3-8.2) H 07/08/20 23:25 Albumin 4.3 g/dL (3.9-5) 07/08/20 23:25 Albumin/Globulin Ratio 0.9 % 07/08/20 23: Procalcitonin 0.10 ng/mL (<0.15) 07/09/20 15:22 Urine Color Aline (Yellow) 07/08/20 14:04 Urine Turbidity Clear (Clear) 07/08/20 14:04 Urine pH 5.0 (5.0-7.0) 07/08/20 14:04 Ur Specific [place] 1.060 (1.003-1.030) H 07/08/20 14:04 Urine Protein 100 mg/dl mg/dL (Negative) 07/08/20 14:04 Urine Glucose (UA) Neg mg/dL (Negative) 07/08/20 14:04 Urine Ketones Neg mg/dL (Negative) 07/08/20 14:04 Urine Blood Sm (Negative) 07/08/20 14:04 Urine Nitrite Neg (Negative) 07/08/20 14:04 Urine Bilirubin Neg (Negative) 07/08/20 14:04 Urine Urobilinogen 4.0 mg/dL (<2.0) 07/08/20 14:04 Ur Leukocyte Esterase Neg (Negative) 07/08/20 14:04 Urine WBC (Auto) < 1.0 /HPF (0.0-6.0) 07/08/20 14:04 Urine RBC (Auto) 1.0 /HPF (0.0-6.0) 07/08/20 14:04 U Epithel Cells (Auto) 1.0 /HPF (0-13.0) 07/08/20 14:04 Urine Mucus Few /HPF 07/08/20 14:04 CSF Appearance Hazy 07/09/20 11:10 CSF Color [place] 07/09/20 11:10 CSF WBC 0 /mm3 (1-10) 07/09/20 11:10 CSF RBC 715 /mm3 (0-0) 07/09/20 11:10 CSF Seg Neutrophils 85.0 % (0-6) 07/09/20 11:10 CSF Lymphocytes % 14.0 % (40-80) 07/09/20 11:10 CSF Reactive Lymphs 0 % 07/09/20 11:10 CSF Monocytes % 1.0 % (15-45) 07/09/20 11:10 CSF Eosinophils % 0 % 07/09/20 11:10 CSF Basophils 0 % 07/09/20 11:10 CSF Pathologist Review C 07/09/20 11:10 CSF Glucose 68 mg/dL 07/09/20 11:10 CSF Total Protein 33 mg/dL 07/09/20 11:10 Urine Opiates Screen Negative 07/08/20 14:04 Urine Methadone Screen Negative 07/08/20 14:04 Ur Barbiturates Screen Negative 07/08/20 14:04 Ur Phencyclidine Scrn Negative 07/08/20 14:04 Ur Amphetamines Screen Negative 07/08/20 14:04 U Benzodiazepines Scrn Negative 07/08/20 14:04 Urine Cocaine Screen Negative 07/08/20 14:04 U Marijuana (THC) Screen Presumptive positive 07/08/20 14:04 Drugs of Abuse Note Disclamer 07/08/20 14:04 Plasma/Serum Alcohol < 0.01 % (0-0.07) 07/09/20 00:12 Microbiology: Microbiology 07/09/20 11:10 Cerebral Spinal Fluid CSF Culture - Preliminary Garcia/IV: Voiding Method External Female Catheter Active Medications - Current Medications Current Medications: Generic Name Dose Route Start Last Admin Trade Name Freq PRN Reason Stop Dose Admin Acetaminophen 650 mg 07/09/20 04:19 Acetaminophen 325 Mg Tab PO Q4H PRN Pain MILD(1-3)/Fever >100.5/PIKE Hydralazine HCl 10 mg 07/09/20 06:30 07/09/20 06:37 Hydralazine 20 Mg/1 Ml Inj IV 10 mg Q4H PRN Administration Hypertension Sodium Chloride 1,000 mls @ 125 mls/hr 07/09/20 04:30 07/10/20 02:09 Nacl 0.9% 1000 Ml IV 125 mls/hr DIRECT LETTY Administration Magnesium Hydroxide 30 ml 07/09/20 04:19 Magnesium Hydroxide (Mom) Oral Liqd Udc PO Q4H PRN Constipation Morphine Sulfate 2 mg 07/09/20 04:19 07/10/20 10:38 Morphine 2 Mg/1 Ml Inj IV 2 mg Q4H PRN Administration Pain, Moderate (4-6) Ondansetron HCl 4 mg 07/09/20 04:19 07/10/20 02:06 Ondansetron 4 Mg/2 Ml Inj IV 4 mg Q8H PRN Administration Nausea And Vomiting Sodium Chloride 10 ml 07/09/20 10:00 07/10/20 10:38 Sodium Chloride 0.9% 10 Ml Flush Syringe IV 10 ml BID LETTY Administration Sodium Chloride 10 ml 07/09/20 04:19 Sodium Chloride 0.9% 10 Ml Flush Syringe IV PRN PRN LINE FLUSH
[2020-07-10] MEDS: hydrALAZINE 20 MG/1 ML INJ IV PRN ×2 (12:50→18:13)
[2020-07-10 14:03] LABS: Basophils # (Auto) 0.1 K/mm3 (0.0-0.1); Basophils % (Auto) 0.7 % (0.0-1.8); Eosinophils # (Auto) 0.1 K/mm3 (0.0-0.4); Eosinophils % (Auto) 0.7 % (0.0-4.3); Hematocrit 45.1 % (30.3-42.9); Hemoglobin 14.7 gm/dl (10.1-14.3); Lymphocytes % (Auto) 12.9 % (13.4-35.0); Mean Corpuscular HGB Conc 33 % (30-34); Mean Corpuscular Volume 85 fl (79-97); Monocytes # (Auto) 1.2 K/mm3 (0.0-0.8); Monocytes % (Auto) 7.9 % (0.0-7.3); Platelet Count 492 K/mm3 (140-440); Red Cell Distribution Width 13.8 % (13.2-15.2)
[2020-07-10 14:24] LABS: Albumin 3.6 g/dL (3.9-5); Calcium 8.6 mg/dL (8.4-10.2)
[2020-07-10] MEDS ORDERED: POTASSIUM CHLORIDE ER 20 MEQ TAB PO NR (19:21)
[2020-07-10] MEDS ORDERED: ZOLPIDEM 5 MG TAB PO SCH (22:00)
[2020-07-10] MEDS ORDERED: QUEtiapine 100 MG TAB PO SCH (22:00)
[2020-07-10] MEDS ORDERED: QUEtiapine 200 MG TAB PO SCH (22:00)
[2020-07-11] MEDS ORDERED: VENLAFAXINE XR 75 MG CAP PO SCH (10:00)
[2020-07-11] MEDS ORDERED: ACYCLOVIR 200 MG CAP PO SCH (10:00)
--- NOTE | 2020-07-11 11:45 | Progress Note ---
Subjective Date of service: 07/11/20 Principal diagnosis: SIRS Interval history: Patient feels better, no fever, no abdominal pain, headache is better. Objective - Constitutional Vitals: Vital Signs Temp Pulse Resp BP Pulse Ox 97.7 F 111 H 18 156/77 96 07/11/20 08:10 07/11/20 10:00 07/11/20 08:10 07/11/20 08:10 07/11/20 08:10 Temperature -Last 24 Hours Temperature 97.7 F Temperature 98.5 F Temperature 99.4 F Temperature 99.6 F Temperature 98.6 F - Labs CBC & Chem 7: 07/10/20 13:47 07/10/20 13:47 Labs: Abnormal lab results 07/10/20 07/10/20 Range/Units 13:47 13:47 WBC 15.6 H (4.5-11.0) K/mm3 RBC 5.30 H (3.65-5.03) M/mm3 Hgb 14.7 H (10.1-14.3) gm/dl Hct 45.1 H (30.3-42.9) % Plt Count 492 H (140-440) K/mm3 Lymph % (Auto) 12.9 L (13.4-35.0) % [place] % (Auto) 7.9 H (0.0-7.3) % [place] # (Auto) 1.2 H (0.0-0.8) K/mm3 Seg Neutrophils % 77.8 H (40.0-70.0) % Seg Neutrophils # 12.1 H (1.8-7.7) K/mm3 Sodium 131 L D (137-145) mmol/L Potassium 3.5 L (3.6-5.0) mmol/L Chloride 95.1 L (98-107) mmol/L Glucose 109 H (65-100) mg/dL AST 44 H (5-40) units/L Alkaline Phosphatase 139 H (35-129) units/L Albumin 3.6 L (3.9-5) g/dL
--- NOTE | 2020-07-11 11:48 | Progress Note ---
Assessment and Plan Cultures: CSF culture pending Assessment: 49 years old female with history of morbid obesity, hypertension, a dmitted on secondary to 4-day history of altered mental status consistent with confusion: #Acute leukocytosis: Likely reactive due to oversedation vs ? Aspiration pneumonitis. Procalcitonin is low. CSF preliminary report not consistent with meningitis. Chest x-ray unremarkable. Abdominal CT unremarkable. Urinalysis negative. CRP 7 #Abdominal tenderness on exam: Resolved. Abdominal CT unremarkable. LFTs normal. #Morbid obesity #Acute encephalopathy: Likely secondary to unintentional overdose due to combination of DIME bag sugar high (THC) and Seroquel. Resolved. CT of the head unremarkable Recommendations: -Patient educated about avoiding combination of sedative -Okay to discharge home on a 875 g p.o. twice daily for 5 days for ? Aspiration pneumonitis discussed w attending Will follow. Nery Swartz MD Infectious Diseases Job Training Specialist [facility] ([facility]) M [phone] O [phone] Subjective Date of service: 07/11/20 Principal diagnosis: SIRS Interval history: Patient feels much better, she wants to go home. No complaints. Objective - Exam Narrative Exam: General appearance: Alert in NAD Eyes: anicteric sclerae, moist conjunctivae; no lid-lag; PERRLA HENT: Normocephalic, Atraumatic; normal external ears, nares open, oropharynx clear Neck: supple, tracheal midline, no JVD Lungs: Clear to auscultation bilaterally CV: RRR no murmur Abdomen: Soft, nontender nondistended Extremities: no edema, no cyanosis Skin: No rash. Psych: no agitated Neuro: Alert, oriented x3, moving all extremities - Constitutional Vitals: Vital Signs Temp Pulse Resp BP Pulse Ox 97.7 F 111 H 18 156/77 96 07/11/20 08:10 07/11/20 10:00 07/11/20 08:10 07/11/20 08:10 07/11/20 08:10 Temperature -Last 24 Hours Temperature 97.7 F Temperature 98.5 F Temperature 99.4 F Temperature 99.6 F Temperature 98.6 F - Labs CBC & Chem 7: 07/10/20 13:47 07/10/20 13:47 Labs: Abnormal lab results 07/10/20 07/10/20 Range/Units 13:47 13:47 WBC 15.6 H (4.5-11.0) K/mm3 RBC 5.30 H (3.65-5.03) M/mm3 Hgb 14.7 H (10.1-14.3) gm/dl Hct 45.1 H (30.3-42.9) % Plt Count 492 H (140-440) K/mm3 Lymph % (Auto) 12.9 L (13.4-35.0) % [place] % (Auto) 7.9 H (0.0-7.3) % [place] # (Auto) 1.2 H (0.0-0.8) K/mm3 Seg Neutrophils % 77.8 H (40.0-70.0) % Seg Neutrophils # 12.1 H (1.8-7.7) K/mm3 Sodium 131 L D (137-145) mmol/L Potassium 3.5 L (3.6-5.0) mmol/L Chloride 95.1 L (98-107) mmol/L Glucose 109 H (65-100) mg/dL AST 44 H (5-40) units/L Alkaline Phosphatase 139 H (35-129) units/L Albumin 3.6 L (3.9-5) g/dL
--- NOTE | 2020-07-11 12:07 | Discharge Summary ---
Providers - Providers Date of Admission: 07/09/20 03:40 Date of discharge: 07/11/20 Attending physician: BILLY VENEGAS 07/09/20 04:19 Consult to Physician [CONS] Routine Comment: Consulting Provider: JENNIFER ZHAO Physician Instructions: Reason For Exam: Altered mental status, leukocytosis.R/O meningitis 07/09/20 09:53 Occupational Therapy Evaluate and Treat [CONS] Routine Comment: Reason For Exam: debility Physical Therapy Evaluation and Treat [CONS] Routine Comment: Reason For Exam: debility Primary care physician: [employer] Hospitalization Condition: Fair Disposition: DC-01 TO HOME OR SELFCARE Final Discharge Diagnosis (Prints w/discharge instructions): Acute metabolic enc ephalopathy. Aspiration pneumonia Time spent for discharge: 35 minutes - Discharge Diagnoses (1) Hypertension Status: Acute (2) Leukocytosis Status: Acute Comment: Due to aspiration pneumonia (3) Morbid obesity with BMI of 45.0-49.9, adult Status: Acute Core Measure Documentation - Palliative Care Palliative Care/ Comfort Measures: Not Applicable - Core Measures Any of the following diagnoses?: none Exam - Physical Exam Narrative exam: VITAL SIGNS: Reviewed. GENERAL: Awake HEAD: No signs of head trauma. EYES: Pupils are equal. Extraocular motions intact. MOUTH: Oropharynx is normal. NECK: No adenopathy, no JVD. CHEST: Chest with diminished breath sounds bilaterally. No wheezes, rales, or rhonchi. CARDIAC: normal S1 and S2, without murmurs, gallops, or rubs. ABDOMEN: Soft, non tender and non distended. No rebound or guarding, and no masses palpated. Bowel Sounds normal. MUSCULOSKELETAL: No edema NEUROLOGIC EXAM: Alert and oriented x3. No focal neurologic deficits SKIN: No obvious lesions - Constitutional Vitals: Temp Pulse Resp BP Pulse Ox 97.7 F 111 H 18 156/77 96 07/11/20 08:10 07/11/20 10:00 07/11/20 08:10 07/11/20 08:10 07/11/20 08:10 Plan Diet: low fat, low cholesterol, low salt Additional Instructions: Continue Augmentin for 5 more days. Stop use of marijuana products. Follow-up with PCP in a week Follow up with: PRIMARY CARE, [Primary Care Provider] - 7 Days Prescriptions: Amoxicillin/K Clav Tab [Augmentin 875MG TAB] 1 tab PO Q12HR #10 tab Metoprolol [Lopressor TAB] 25 mg PO BID #60 tablet
[2020-07-11 13:10] VITALS: BP 121/66
[2020-07-11] MEDS ORDERED: GABAPENTIN 300 MG CAP PO SCH (18:00)
== END 2020-07-11 16:15 | disposition home or self-care (01) | DRG 70 ==
LOC: ED 23:00 → EDBD 23:00 → 4A 07-09 03:40
PROVIDERS: ADMIT Internal Medicine Geriatric Medicine; ATTEND Internal Medicine
PROC: 009U3ZX Drainage of Spinal Canal, Percutaneous Approach, Diagnostic (ICD-10-PCS; principal; 2020-07-09)
PROC: B01B1ZZ Fluoroscopy of Spinal Cord using Low Osmolar Contrast (ICD-10-PCS; 2020-07-09)
DX: G93.41 Metabolic encephalopathy (principal); J69.0 Pneumonitis due to inhalation of food and vomit; Z68.42 Body mass index [BMI] 45.0-49.9, adult; E66.01 Morbid (severe) obesity due to excess calories; I10 Essential (primary) hypertension; F41.9 Anxiety disorder, unspecified; D72.829 Elevated white blood cell count, unspecified; F32.9 Major depressive disorder, single episode, unspecified; R29.711 NIHSS score 11; Z79.899 Other long term (current) drug therapy
CPT/HCPCS: 36415; 62270; 62328; 70450; 70496; 70498; 71046; 74176; 80053; 80307; 80320; 81001; 82140; 82550; 82553; 82947; 82962; 84145; 84160; 84484; 85025; 85049; 85610; 85670; 85730; 86140; 86592; 87040; 87116; 87498; 87799; 89051; 93005; 96365; 96375; G0378; G0480; J0133; J0360; J0696; J2270; J2405; J3370; J7030; J7040; Q9967